=== PATIENT | female | born 1980 | race Caucasian/White ===

== ENCOUNTER → 2020-11-28 13:44 | Outpatient (ROUT) | payer OTHER, MEDICAID, SELFPAY | PROVIDERS: Visit Provider Nurse Practitioner Obstetrics & Gynecology | DX: Z34.90 Encounter for supervision of normal pregnancy, unspecified, unspecified trimester (principal); Z36.85 Encounter for antenatal screening for Streptococcus B; Z3A.36 36 weeks gestation of pregnancy | CPT/HCPCS: 87081 ==

== ENCOUNTER 2020-12-28 20:58 | Inpatient (IN) | payer OTHER, MEDICAID, SELFPAY ==
[2020-12-28 23:21] LABS: COVID19 - ADMIT (NP swab/PCR) Negative (Negative)
--- NOTE | 2020-12-29 00:50 | P.HPOB_ITS ---
OB HPI Date/Time Date of admission: 12/28/20 Date Patient Seen: 12/28/20 Time Patient Seen: 21:00 History of Present Condition Chief complaint: observation : 5 Para: 0 Estimated Date of Delivery: 12/27/20 Estimated Gestational Age (weeks): 40.1 Narrative: Ethel Rainey is a 40 year old female @ 40wks1 day by LMP and 6wk US who presents in active labor. Routine care w/ CNM. AMA, declined IOL by [facility] and has had reassuring NSTs with RON today @ 10.39cm. Shagger is en route. Pt is coping well, unaccompanied. History of Present care: good care, initiated at week # (6), number of visits (14) and pounds weight gain (35) Dating criteria: LMP confirmed by 1st trimester US Ultrasounds: normal mid trimester US Obstetrical complications: none Medical complications: none Preadmission Labs Blood type: B (-) negative -: Antibody screen: negative, GBS status: negative, HBsAG: negative, HIV: negative and RPR/VDLR: negative -: Chlamydia screen: not detected and Gonorrhea screen: not detected -: Rubella: immune and Varicella: immune HCT: 37.3 HCAB: negative PAP: Normal Narrative: 3hr gtt: 82/198/12/89 Prior (ies) History: SAB x 2, TAB x2 Evaluation Evaluation Baseline heart rate: 160 Cervical dilation (cm): 7 Cervical effacement (%): 100 station: -1 Comments: FHR reassuring by intermittent auscultation [facility] Medical History (Updated 12/29/20 @ 01:06 by Verónica Guzman CNM) Advanced maternal age (AMA), 40 years or greater Family History (Updated 12/29/20 @ 01:07 by Verónica Guzman CNM) Sister Diabetes mellitus Meds Home Medications and Allergies Home Medications Medication Instructions Recorded Confirmed Type levothyroxine 50 mcg tablet mcg 12/29/20 History Allergies Allergy/AdvReac Type Severity Reaction Status Date / Time No Known Drug Allergies Allergy Unverified 12/29/20 01:07 Review of Systems Review of Systems ROS: Yes All systems reviewed with the patient and are negative except as otherwise documented Exam Vital Signs (past 8 hours): BP 129/83mmHg, HR 90bpm, T 36.9C Temporal Resp Auscultation: clear to auscultation bilaterally Cardio Rate: regular rate Rhythm: regular rhythm Presentation: vertex Objective Labs Labs: Laboratory Results - last 24 hr 12/28/20 22:24 SARS-CoV-2 (PCR) Negative Assessment and Plan Assessment and Plan Assessment and Plan narrative: A: Term nullipara AMA Active labor Reassuring FHR P: Admit, routine orders. Continuous labor support with intermittent auscultation. Anticipate NSVB soon.
--- NOTE | 2020-12-29 01:11 | P.PCNOB_ITS ---
Labor & Delivery Delivery date: 12/29/20 Intrapartal Events: None Cervical ripening method: none Induction method: none Delivery monitor: external FHT Route of delivery: Episiotomy description: None L&D Laceration Description: Perineal - 1st Degree and Labial Delivery repair: chromic (3.0) Estimated blood loss (mL): 50 Anesthesia Type: None Narrative: Patient labored without medication. Began pushing spontaneously on hands and knees and was presumed complete. Ethel pushed well on the toilet and on hands and knees. Melisa was assisted to the CUB, recumbent on her performance engineer for NSVB of a vigorous baby boy in ZACHARY position with no nuchal cord and easy delivery of the shoulders. was lifted to maternal abdomen for drying and skin to skin. After cessation of pulsation, the cord was double clamped by CNM and cut by performance engineer. Cord blood sample was collected. Gentle cord traction and single maternal push led to spontaneous, Schultze delivery of an apparently intact placenta, membranes and 3VC. Fundus was immediately firm and bleeding was minimal. Ethel was assisted to bed for repair of a 1st degree perineal laceration under 1% lidocaine local. QBL 50mL. Both mother and baby stable and skin to skin as I left the room. Baby 1: Infant gender: Male Presentation: vertex Position: Right Occiput Anterior Placenta delivery description: Spontaneous Cord Vessel Description: 3 Vessels score (1 min): 9 score (5 min): 9 weight: 3.312 kg Plan for aftercare: Routine care
--- NOTE | 2020-12-29 16:31 | PM.OBDS.1 ---
Discharge Providers Provider Date of admission: 12/28/20 20:58 Discharge Date: 12/29/20 Primary care physician: Lorena Houston PA-C Consults: 12/30/20 00:49 Consult to Electrical Software Engineer Routine Comment: Discharge provider: Verónica Guzman CNM Summary Hospital Course Date Patient Seen: 12/29/20 Time Patient Seen: 16:31 Diagnoses: o70.0 Hospital Course: Day of delivery 17 hours s/p NSVB, Ethel is ready for discharge to home tonight. Voiding, ambulating and independently. Toerating a general diet. Declining all PO pain medication. Bleeding is small without clots. Security And Compliance Project Manager/friend, Dinorah, has remained present and supportive and Ethel reports good support back on [place]. Peripartum Data Infant Delivery Method: Natural Vaginal Laceration Description: Perineal - 1st Degree Episiotomy description: None complications: none 1: Gender: Male Disposition of : home Discharge Diagnosis (1) First degree perineal laceration during delivery: Start Date: 12/29/20 Status: Acute Status at Discharge Cognitive/behavioral status at discharge: oriented and calm Functional status at discharge: independent ambulation Overall status at discharge: patient is progressing back to baseline Time Spent with Patient Time attestation: Total time spent providing and/or coordinating discharge services: Time spent: Less than 30 minutes Specific discharge activities: routine teaching Objective Labs Labs: Laboratory Results - last 24 hr 12/28/20 22:24 SARS-CoV-2 (PCR) Negative Exam Vital Signs (past 8 hours): BP 102/64, HR 78bpm, RR 16/min, T 97.8F Other: Fundus firm @ U. Lochia is scant without clots, perineum well approximated. Discharge Plan Discharge Plan Patient Disposition: Home Provider Discharge Comment: Rhogam prior to discharge Discharge orders & Medications Prescriptions: New ibuprofen 600 mg Tablet 600 mg PO Q6HR PRN (Reason: Pain, Mild (1-3)) 14 Days Qty: 30 RF: 0 Discontinued levothyroxine 50 mcg tablet RF: 0 Follow up/Referrals: Lorena Houston PA-C [Primary Care Provider] - Veróniac Guzman CNM [Advanced Radiology Interventional Physician] - (Follow-up 01/09/21 @ 1045am by Telehealth Follow-up 02/08/21 @ 1100am in office) Diet/Activity/Treatments Diet: Diet as Tolerated and Regular Activity: pelvic rest x 6 weeks Skin/Wound/Dressing Care Report to your healthcare provider any signs of infection, such as:: chills, fever, increased pain, unusual drainage and unusual redness Visit Report/Discharge Packet Instructions: Depression Discharge Data Primary Care Provider: Lorena Houston
[2020-12-29 16:46] VITALS: BP 100/72; PULSE 100; RESP 15; TEMP 36.8
[2020-12-29] MEDS: RHO(D) IMMUNE GLOBULIN 1,500 UNIT SYRINGE 1500 UNIT IM (17:39)
== END 2020-12-29 18:45 | disposition home or self-care (01) | DRG 560 ==
PROVIDERS: Admitting Provider Nurse Practitioner Obstetrics & Gynecology; PCP Physician Assistant Medical; Referring Provider Nurse Practitioner Obstetrics & Gynecology; Visit Provider Nurse Practitioner Obstetrics & Gynecology
DX: O70.0 First degree perineal laceration during delivery (principal); Z3A.40 40 weeks gestation of pregnancy; Z37.0 Single live birth
CPT/HCPCS: 87635; C9803; G0379; J2790